=== PATIENT | female | born 1990 | race Caucasian/White ===

== ENCOUNTER 2018-04-26 22:05 | Emergency (ER) | payer OTHER ==
[~2018-04-26] VITALS: Ht 157.5 cm; Wt 53.6 kg
[2018-04-26 22:09] VITALS: Ht 157.5 cm; Wt 53.6 kg
[2018-04-26 23:57] VITALS: BP 120/78
== END 2018-04-26 23:57 | disposition home or self-care (01) ==
LOC: ED 22:05
DX: M72.2 Plantar fascial fibromatosis (principal)

== ENCOUNTER 2018-08-03 22:39 | Emergency (ER) | payer OTHER ==
[~2018-08-03] VITALS: Ht 160 cm; Wt 46.3 kg
[2018-08-03 22:46] VITALS: Ht 160 cm; Wt 46.3 kg
[2018-08-04 00:09] LABS: BASOPHIL % 0.8 % (0-2); PLATELET COUNT 221 x10^3mcL (130-400); RED CELL DISTRIBUTION WIDTH 12.7 % (11.5-14.5)
[2018-08-04 00:17] LABS: CALCIUM 9.5 mg/dL (8.5-10.1); CARBON DIOXIDE 26.2 mmol/L (21-32); CHLORIDE SERUM 104 mmol/L (98-107); CREATININE SERUM 0.7 mg/dL (0.6-1.0); GFR1 > 60 mL/min; GLUCOSE SERUM 99 mg/dL (74-106); POTASSIUM SERUM 3.4 mmol/L (3.5-5.1); SODIUM SERUM 139 mmol/L (136-145)
[2018-08-04 00:22] LABS: ALKALINE PHOSPHATASE 51 U/L (46-116); ALT/SGPT 53 U/L (14-59); AST/SGOT 21 U/L (15-37); BILIRUBIN TOTAL 0.5 mg/dL (0.20-1.00); TOTAL PROTEIN, SERUM 7.4 g/dL (6.4-8.2)
[2018-08-04 01:13] VITALS: BP 110/74
== END 2018-08-04 01:13 | disposition home or self-care (01) ==
LOC: ED 22:39
PROVIDERS: Emergency Medicine
DX: R55 Syncope and collapse (principal); H81.10 Benign paroxysmal vertigo, unspecified ear
CPT/HCPCS: 36415